=== PATIENT | female | born 1945 | race Caucasian/White ===

== ENCOUNTER 2020-10-03 17:55 | Emergency (ER) | payer MEDICARE, BC ==
[~2020-10-03] VITALS: Ht 147.3 cm; Wt 37.0 kg
[~2020-10-03 17:55] MED LIST: CIPROFLOXACN500 MG PO; LIPITOR10 MG PO; RECLAST5 MG/100 M IV
[2020-10-03 21:55] VITALS: BP 171/89
== END 2020-10-03 21:55 | disposition home or self-care (01) ==
LOC: ED 17:55
PROC: 0HQ0XZZ Repair Scalp Skin, External Approach (ICD-10-PCS; principal; 2020-10-03)
DX: S01.01XA Laceration without foreign body of scalp, initial encounter (principal); T14.8XXA Other injury of unspecified body region, initial encounter; W01.0XXA Fall on same level from slipping, tripping and stumbling without subsequent striking against object, initial encounter; Y92.009 Unspecified place in unspecified non-institutional (private) residence as the place of occurrence of the external cause